=== PATIENT | female | born 1955 | race Caucasian/White ===

== ENCOUNTER → 2016-06-13 | Outpatient (CLI) | payer MEDICAID ==
[~2016-06-13] MED LIST: LAMISIL1% TP
== END ==
LOC: RT 05-25 13:00
DX: R07.9 Chest pain, unspecified (principal); R94.31 Abnormal electrocardiogram [ECG] [EKG]; I45.10 Unspecified right bundle-branch block; Z72.0 Tobacco use

== ENCOUNTER → 2016-09-20 | Outpatient (CLI) | payer MEDICAID ==
--- NOTE | 2016-09-21 09:32 | RADIOLOGY REPORT PS360 ---
EXAM: CT LUNG LOW DOSE WO CONTRAST COMPARISON: None HISTORY: 61-year-old asymptomatic female with 45 year pack year smoking history ORDERING PHYSICIAN: ALTON NICHOLE MD PATIENT AGE: 61 years TECHNIQUE: The exam was performed on a GE Light Speed [address] scanner using 2.93 mGy CTDI. A low dose helical CT CHEST was performed on a multi-detector scanner The LDCT was performed in a facility that meets the criteria for the screening program. Data regarding this exam was submitted to [employer] which is an approved registry. The order for this exam indicates that it came as a result of a lung cancer screening counseling shard decision-making visit that included all the elements required of such a visit including smoking cessation. The radiologist interpreting this exam meets the [facility] criteria for the LDCT lung cancer screening program. The exam is reported using the Lung-RADS classification scale and reported to the ACR registry. NOTE: THIS STUDY WAS PERFORMED FOR THE SPECIFIC PURPOSES OF LUNG CANCER SCREENING AND IS NOT AN ALTERNATIVE TO DIAGNOSTIC CHEST CT. RADIATION DOSE: CTDI vol(CT dose Index-volume) = 2.93mG DLP (Dose Length Product) = 94.09 mGcm FINDINGS: There are multiple calcified and noncalcified nodular opacities present bilaterally which are marked and measured on the images. The largest noncalcified nodules in the right apex at 5 mm. There are several 3 to 4 mm noncalcified nodules. A 5 mm noncalcified groundglass opacity is present within the lingula. There is hyperinflation with attenuation of the peripheral pulmonary vessels and mild bronchial thickening consistent with obstructive chronic bronchitis. No lobar consolidation or collapse. No mediastinal or hilar adenopathy. IMPRESSION: 1. Lung RADS Category: 3, probably benign, multiple noncalcified and calcified pulmonary nodules 2. Other findings: Obstructive chronic bronchitis RECOMMENDATIONS: 6 monthd LDCT follow-up
== END ==
LOC: RAD 12:33
DX: Z87.891 Personal history of nicotine dependence (principal); Z12.2 Encounter for screening for malignant neoplasm of respiratory organs; J42 Unspecified chronic bronchitis; F17.210 Nicotine dependence, cigarettes, uncomplicated; Z71.6 Tobacco abuse counseling
CPT/HCPCS: G0297

== ENCOUNTER 2017-01-31 10:36 | Emergency (ER) | payer MEDICAID ==
[~2017-01-31] VITALS: Ht 157.5 cm; Wt 74.4 kg
[2017-01-31] MEDS ORDERED: ASPIRIN 81MG TA81 MG PO (10:46)
--- NOTE | 2017-01-31 10:56 | Urgent Treatment Center Report ---
History of Present Issue Date/Time Seen by Provider 01/31/17 1054 Visit Reason Pt arrived:Walked Presenting Problem:PT STATES R LOWER LEG PAIN THAT BEGAN YESTERDAY. STATES SLIGHT SWELLING TO LEG. DENIES INJURY. NO DISCOLORATION NOTED TO LOWER LEG Location if Accident: Onset of symptoms date/time:01/30/17/ or onset unknown for:MEDICAL HX UNKNOWN Have you (or family members/close friends) recently traveled outside the [facility]? N If Yes, where/when: Have you had exposure to infectious disease within the past month? TB? Other? Specify: c/o right leg swelling. First noticed yesterday. Denies any injury. No pain. No discoloration. Unchanged w/ ice last night and elevation over night. Denies hx of DVT. + tobacco abuse. + HTN. No routine exercise but reports active most of the day w/ cleaning, stairs, grandbabies and rarely sedentary. Most recent long car ride in November 2016 when traveled to [place]. Denies short of breath. "Not bothersome at all. I just saw it and worry about a blood clot". Source patient Exam Limitations no limitations ALLERGIES Coded Allergies: No Known Allergies (01/31/17) Home Medications Reported Medications ASPIRIN (Aspirin) 81 MG PO DAILY History Medical History General CAD? No Angina: No [place]: No Hypertension? Yes Hyperlipidemia? No CHF? No DVT? No PE? No COPD? No Asthma? No Anemia? No GERD? No Gastric ulcers? No GI Bleed? No Hernia? No Thyroid Problems? No Hypothyroidism? No CVA? No Seizures? No Diabetes? No Renal Insuffiency? No UTI? No Stones? No BPH? No GB Disease: No Nephritic Syndrome? No Asplenia? No Hepatitis? No Sickle Cell Disease? No Arthritis? No Migraines? No Cataracts? No Glaucoma? No MRSA? No HIV? No TB? No Anxiety? No Depression? No Cancer? No Immunization HX DT/Tetanus 5-10 YRS Surgical Hx Previous Surgery?Y TUBAL Social History Smoking Hx Smoker: Current Every Day Smoker Tobacco: Yes Type Cigarettes Packs/day < 1 Pack Alcohol Alcohol: No Review of Systems All Other Systems Reviewed and Negative Constitutional denies fever, denies malaise Respiratory denies shortness of breath Cardiovascular denies chest pain, denies palpitations Gastrointestinal denies no symptoms reported Musculoskeletal denies joint pain, denies joint swelling, denies muscle pain, denies muscle stiffness, denies other (limited ROM) Skin denies change in color, denies lesions, denies rash Psychiatric/Neurological denies numbness, denies tingling Physical Exam Vital Signs Vital Signs Date Time Temp Pulse Resp B/P Pulse O2 O2 Flow FiO2 Ox Delivery Rate 01/31 1044 97.7 88 20 173/95 99 General Appearance normal appearance, no apparent distress Respiratory Status No: respiratory distress. Cardiovascular no peripheral edema Peripheral Pulses Pulses normal No (teena PT/DP 1+) Back gait normal Extremities non-tender (BLE), normal range of motion (teena knee, ankles), no calf tenderness (teena calves 37 inches), minimal swelling mid right lower leg, anterior/lateral aspect; incomparison to left LE, appears similiar yet pt adament this is not her normal lower leg; no discoloration Strength 5 Lower Ext (L), 5 Lower Ext (R) Neurologic alert, no motor/sensory deficits, oriented x 3 Skin normal color, warm/dry Medical Decision Making LABS/Meds/Orders Pt receiving controlled substance in ED? No Results/Orders Orders Procedure Date/time Status VENOUS LOWER EXT RT 01/31 1059 Active Progress [facility] Progress Notes 1 Date 01/31/17 Time 1059 Comment Discussed likelihood of DVT. Pt still very concerned and adament about ruling it out. [facility] Progress Notes 2 Date 01/31/17 Time 1108 Comment pt to ultrasound with Heather via wheelchair [facility] Progress Notes 3 Date 01/31/17 Time 1125 Comment pt returned from doppler ultrasound. kiran Romero reports negative ultrasound Departure Departure Time of Disposition 1125 Disposition DC Home or Self Care(routine) Clinical Impression Primary Impression: Right leg swelling Condition STABLE Referrals Joseph JOSEPH,Ruiz Thurman (Family) Call today and schedule follow up. return for new or worsening symptoms. Additional Instructions * ibuprofen every 6 hours as needed (as long as your primary care doctor has told you that it is ok to take) * Elevate RLE * No blood clot. Follow up with primary care. Discharge Counseling Counseled pt/family regarding diagnosis, test results, medications/RX, home care, follow up needs at 1127
--- NOTE | 2017-01-31 10:56 | Urgent Treatment Center Report ---
History of Present Issue Date/Time Seen by Provider 01/31/17 1054 Visit Reason Pt arrived:Walked Presenting Problem:PT STATES R LOWER LEG PAIN THAT BEGAN YESTERDAY. STATES SLIGHT SWELLING TO LEG. DENIES INJURY. NO DISCOLORATION NOTED TO LOWER LEG Location if Accident: Onset of symptoms date/time:01/30/17/ or onset unknown for:MEDICAL HX UNKNOWN Have you (or family members/close friends) recently traveled outside the [facility]? N If Yes, where/when: Have you had exposure to infectious disease within the past month? TB? Other? Specify: c/o right leg swelling. First noticed yesterday. Denies any injury. No pain. No discoloration. Unchanged w/ ice last night and elevation over night. Denies hx of DVT. + tobacco abuse. + HTN. No routine exercise but reports active most of the day w/ cleaning, stairs, grandbabies and rarely sedentary. Most recent long car ride in November 2016 when traveled to [place]. Denies short of breath. "Not bothersome at all. I just saw it and worry about a blood clot". Source patient Exam Limitations no limitations ALLERGIES Coded Allergies: No Known Allergies (01/31/17) Home Medications Reported Medications ASPIRIN (Aspirin) 81 MG PO DAILY History Medical History General CAD? No Angina: No [place]: No Hypertension? Yes Hyperlipidemia? No CHF? No DVT? No PE? No COPD? No Asthma? No Anemia? No GERD? No Gastric ulcers? No GI Bleed? No Hernia? No Thyroid Problems? No Hypothyroidism? No CVA? No Seizures? No Diabetes? No Renal Insuffiency? No UTI? No Stones? No BPH? No GB Disease: No Nephritic Syndrome? No Asplenia? No Hepatitis? No Sickle Cell Disease? No Arthritis? No Migraines? No Cataracts? No Glaucoma? No MRSA? No HIV? No TB? No Anxiety? No Depression? No Cancer? No Immunization HX DT/Tetanus 5-10 YRS Surgical Hx Previous Surgery?Y TUBAL Social History Smoking Hx Smoker: Current Every Day Smoker Tobacco: Yes Type Cigarettes Packs/day < 1 Pack Alcohol Alcohol: No Review of Systems All Other Systems Reviewed and Negative Constitutional denies fever, denies malaise Respiratory denies shortness of breath Cardiovascular denies chest pain, denies palpitations Gastrointestinal denies no symptoms reported Musculoskeletal denies joint pain, denies joint swelling, denies muscle pain, denies muscle stiffness, denies other (limited ROM) Skin denies change in color, denies lesions, denies rash Psychiatric/Neurological denies numbness, denies tingling Physical Exam Vital Signs Vital Signs Date Time Temp Pulse Resp B/P Pulse O2 O2 Flow FiO2 Ox Delivery Rate 01/31 1044 97.7 88 20 173/95 99 General Appearance normal appearance, no apparent distress Respiratory Status No: respiratory distress. Cardiovascular no peripheral edema Peripheral Pulses Pulses normal No (teena PT/DP 1+) Back gait normal Extremities non-tender (BLE), normal range of motion (teena knee, ankles), no calf tenderness (teena calves 37 inches), minimal swelling mid right lower leg, anterior/lateral aspect; incomparison to left LE, appears similiar yet pt adament this is not her normal lower leg; no discoloration Strength 5 Lower Ext (L), 5 Lower Ext (R) Neurologic alert, no motor/sensory deficits, oriented x 3 Skin normal color, warm/dry Medical Decision Making LABS/Meds/Orders Pt receiving controlled substance in ED? No Results/Orders Orders Procedure Date/time Status VENOUS LOWER EXT RT 01/31 1059 Active Progress [facility] Progress Notes 1 Date 01/31/17 Time 1059 Comment Discussed likelihood of DVT. Pt still very concerned and adament about ruling it out. [facility] Progress Notes 2 Date 01/31/17 Time 1108 Comment pt to ultrasound with Heather via wheelchair [facility] Progress Notes 3 Date 01/31/17 Time 1125 Comment pt returned from doppler ultrasound. kiran Romero reports negative ultrasound Departure Departure Time of Disposition 1125 Disposition DC Home or Self Care(routine) Clinical Impression Primary Impression: Right leg swelling Condition STABLE Referrals Joseph JOSEPH,Ruiz Thurman (Family) Call today and schedule follow up. return for new or worsening symptoms. Additional Instructions * ibuprofen every 6 hours as needed (as long as your primary care doctor has told you that it is ok to take) * Elevate RLE * No blood clot. Follow up with primary care. Discharge Counseling Counseled pt/family regarding diagnosis, test results, medications/RX, home care, follow up needs at 1127
[2017-01-31 11:36] VITALS: BP 173/95
--- NOTE | 2017-02-02 16:06 | CARDIOVASCULAR REPORT ---
"Venous Exam Indications: 782.3 Edema. Patient denies trauma. States the right lower extremity began to swell yesterday 01/30/17. IMPRESSIONS 1. There is no evidence of significant Reflux. 2. No evidence of deep or superficial vein thrombosis involving the right lower extremity History: Swelling of the right lower extremity. Risk factors: Current tobacco use. Hypertension. Medications: Aspirin, 81 mg daily. Right lower extremity venous duplex evaluation. Doppler flow study including spectral analysis, color and brooke scale imaging. Location: Vascular laboratory. Patient status: Emergency department. CRITICAL FINDINGS - Reported to: Rizwana Anderson APRN - Read back and verified. - 01/31/17 - 11:20 - RLE negative for DVT or SVT Tables: Venous flow and imaging: + +-------+ + |Location |Overall|Flow properties | + +-------+ + |Right common femoral |Patent |Normal phasicity; spontaneous; | | | |normal augmentation; compressible| + +-------+ + |Right saphenofemoral junction|Patent |Compressible | + +-------+ + |Right profunda femoral |Patent |Compressible | + +-------+ + |Right femoral |Patent |Normal phasicity; spontaneous; | | | |normal augmentation; compressible| + +-------+ + |Right greater saphenous |Patent |Normal phasicity; spontaneous; | | | |normal augmentation; compressible| + +-------+ + |Right popliteal |Patent |Normal phasicity; spontaneous; | | | |normal augmentation; compressible| + +-------+ + |Right posterior tibial |Patent |Compressible | + +-------+ + |Right peroneal |Patent |Compressible | + +-------+ + |Right gastrocnemius |Patent |Compressible | + +-------+ + |Right soleal |Patent |Compressible | + +-------+ + (Report amended ) Electronically signed by: Eduardo Turk [id number]"
== END 2017-01-31 11:36 | disposition home or self-care (01) ==
LOC: UTC 10:36
DX: M79.89 Other specified soft tissue disorders (principal); I10 Essential (primary) hypertension; Z72.0 Tobacco use

== ENCOUNTER → 2017-02-07 | Outpatient (CLI) | payer MEDICAID ==
[~2017-02-07] MED LIST changes: +ASPIRIN 81MG TA81 MG PO
[2017-02-07 08:46] LABS: HEMOGLOBIN 12.8 g/dL (12.2-16.2); LYMPH % 41.4 % (10-50.0)
[2017-02-07 10:23] LABS: BUN 19 mg/dL (7-18)
[2017-02-07 10:27] LABS: GFR (ESTIMATED) 64 ML/MIN (59-)
== END ==
LOC: LAB 08:30
PROVIDERS: Nurse Practitioner Family
DX: R53.83 Other fatigue (principal)